=== PATIENT | male | born 2000 | race Two or more races ===

== ENCOUNTER 2021-03-01 22:38 | Emergency (ER) | payer OTHER ==
[~2021-03-01] VITALS: Ht 160 cm; Wt 63.5 kg
[2021-03-02 01:15] VITALS: BP 120/75
[2021-03-02] MEDS ORDERED: HYDROcodone-ACET 5/325MG TAB PO ONE (01:15)
== END 2021-03-02 02:05 | disposition home or self-care (01) ==
LOC: ER 22:39
DX: S22.32XA Fracture of one rib, left side, initial encounter for closed fracture (principal); F12.10 Cannabis abuse, uncomplicated; V29.49XA Motorcycle driver injured in collision with other motor vehicles in traffic accident, initial encounter; Y93.89 Activity, other specified; Y92.410 Unspecified street and highway as the place of occurrence of the external cause; Y99.8 Other external cause status
CPT/HCPCS: 71250